=== PATIENT | male | born 1965 | race African-American/Black ===

== ENCOUNTER 2019-01-09 11:19 | Emergency (ER) | payer OTHER, MEDICAID ==
[~2019-01-09] VITALS: Ht 180.3 cm; Wt 69.9 kg
[2019-01-09 11:25] VITALS: BP_SYST 113
[2019-01-09] MEDS ORDERED: LORazepam 1 MG TABLET PO ONE (11:45)
[2019-01-09] MEDS ORDERED: HALOPERIDOL LACTATE 5 MG/ML VIAL IM ONE (11:45)
[2019-01-09 14:43] LABS: BASOPHILS % (AUTO) 0.6 % (0.0-2.0); EOSINOPHILS % (AUTO) 0.6 % (0.0-4.0); HEMATOCRIT 39.5 % (36-54); HEMOGLOBIN 12.8 g/dL (14.0-18.0); LYMPHOCYTES % (AUTO) 14.5 % (20.5-51.5); MEAN CORPUSCULAR HEMOGLOBIN 28 pg (27-31); MEAN CORPUSCULAR HGB CONC 32 % (32-36); MEAN CORPUSCULAR VOLUME 88 fL (79.0-98.0); NEUTROPHILS # (AUTO) 3.8 K/uL (1.8-7.7); NEUTROPHILS % (AUTO) 79.3 % (40.0-70.0); PLATELET COUNT (AUTO) 279 K/uL (130-430); RED BLOOD CELL COUNT(AUTO) 4.51 MIL/uL (4.2-6.2); RED CELL DISTRIBUTION WIDTH 14.4 % (9.0-15.0); WHITE BLOOD COUNT (AUTO) 4.8 K/uL (4.8-10.8)
[2019-01-09 14:44] LABS: LYMPHOCYTES # (AUTO) 0.7 K/uL (1.0-5.5); MONOCYTES # (AUTO) 0.2 K/uL (0.0-1.0)
[2019-01-09 14:53] LABS: CALCIUM 9.2 mg/dL (8.4-11.0); CREATININE 0.91 mg/dL (0.55-1.30); POTASSIUM 3.9 mmol/L (3.5-5.1)
[2019-01-09 15:08] LABS: PROTHROMBIN TIME 10.4 SECS (9.5-12.5)
[2019-01-09 16:37] VITALS: BP_SYST 121
== END 2019-01-09 15:43 | disposition home or self-care (01) ==
LOC: SED 11:19
DX: Z01.812 Encounter for preprocedural laboratory examination (principal); F84.0 Autistic disorder
CPT/HCPCS: 36415; 71045; 80048; 85025; 85610; 85730; 93005; 96372; 99284; J1630

== ENCOUNTER 2023-06-04 08:00 | Outpatient (CLI) | payer OTHER | END 2023-06-04 15:00 | disposition home or self-care (01) | LOC: SLB 08:00 → EDSTATUS 06-05 11:00 | PROVIDERS: ATTEND Podiatrist Primary Podiatric Medicine | DX: B35.1 Tinea unguium (principal); L89.892 Pressure ulcer of other site, stage 2 | CPT/HCPCS: 87081 ==

== ENCOUNTER 2023-07-31 08:31 | Day surgery (SDC) | payer OTHER ==
[~2023-07-31] VITALS: Ht 172.7 cm; Wt 56.7 kg
[2023-07-31] MEDS ORDERED: SEVOFLURANE 15 MIN GAS INH ONE (10:10)
[2023-07-31] MEDS ORDERED: NS IRRIG SOLN 1000 ML IR ONE (10:10)
[2023-07-31 14:46] VITALS: BP_SYST 129; PULSE 73; RESP 16; TEMP 99.2
== END 2023-07-31 11:55 | disposition home or self-care (01) ==
LOC: SDS 08:31 → SMU 08:31 → SDS 11:55
PROVIDERS: ATTEND Podiatrist Primary Podiatric Medicine
DX: B35.1 Tinea unguium (principal); L89.892 Pressure ulcer of other site, stage 2; F84.0 Autistic disorder
CPT/HCPCS: 87081